=== PATIENT | male | born 1960 | race Caucasian/White ===

== ENCOUNTER → 2018-04-10 11:27 | Outpatient (CLI) | payer OTHER, SELFPAY ==
--- NOTE | 2018-04-10 | DI.MRI.S_ITS ---
PROCEDURE: MR SHOULDER RT WO CON INDICATIONS: CHRONIC RIGHT SHOULDER PAIN TECHNIQUE: Noncontrast oblique coronal T2 fast spin echo with fat saturation, oblique sagittal T1 spin echo and T2 fast spin echo with fat saturation, axial T1 spin echo and T2 fast spin echo with fat saturation through the shoulder. COMPARISON: None. FINDINGS: Image quality: Excellent. Rotator cuff: Severe thickening and intrasubstance signal change involving the supraspinatus and infraspinatus tendons is present in keeping with marked tendinopathy and interstitial tearing. There are partial-thickness bursal and articular sided tear of the infraspinatus and supraspinatus tendon, however no definite retracted or full thickness defect is seen. Mild tendinopathy involving teres minor. Subscapularis tendon also appears thickened with partial thickness articular sided tear and tendinopathy. No atrophy of the rotator cuff musculature although there is mild fatty infiltration diffusely. Bones and bursae: No bone marrow contusions or fractures. Moderate glenohumeral and moderate to severe acromioclavicular joint degeneration. The acromion demonstrates conventional anatomy, without an os acromiale. Trace subacromial/subdeltoid bursal fluid. Capsule and soft tissues: Prominent hypertrophic appearance of the anterior and posterior labrum, with intrasubstance signal change for example image 18 series 12. Ill-defined tear involving the superior labrum although this is technically age-indeterminate. The inferior labrum is not well seen and blunted appearance. The long head of the biceps tendon demonstrates normal location and morphology. The rotator interval appears normal, without fibrosis. The coracohumeral ligament is normal in thickness. IMPRESSION: Severe supraspinatus and infraspinatus tendinopathy and thickening and interstitial tearing. Partial thickness bursal and articular sided tear without full thickness defect. Mild teres minor tendinopathy. Subscapularis tendinopathy and partial thickness articular sided tear. Moderate shoulder joint degeneration. Circumferential labral tear, with pronounced hypertrophic appearance and scarring. This suggests chronic age, and superimposed degeneration. Please correlate with exam findings. Dictated by: Brooks Ellis M.D. on 04/10/2018 at 15:29 Approved by: Brooks Ellis M.D. on 04/10/2018 at 15:40
== END ==
PROVIDERS: Family Provider Family Medicine; PCP Family Medicine; Visit Provider Nurse Practitioner Family
DX: M25.511 Pain in right shoulder (principal); M75.101 Unspecified rotator cuff tear or rupture of right shoulder, not specified as traumatic; M19.011 Primary osteoarthritis, right shoulder; S43.491A Other sprain of right shoulder joint, initial encounter; G89.29 Other chronic pain
CPT/HCPCS: 73221

== ENCOUNTER → 2022-03-30 14:08 | Outpatient (CLI) | payer OTHER, SELFPAY ==
--- NOTE | 2022-03-30 | DI.US.S_ITS ---
PROCEDURE: US ABDOMEN LIMITED INDICATIONS: Right lower quadrant pain TECHNIQUE: Real-time focused scanning was performed of the abdomen, with image documentation. COMPARISON: None. FINDINGS: Limited ultrasound examination of right groin shows no soft tissue mass or fluid collection. No inguinal fascial defect or hernia. No inguinal lymphadenopathy. IMPRESSION: No abnormality is seen in right groin to account for patient's symptoms. Dictated by: Felix Martinez M.D. on 03/30/2022 at 19:22 Approved by: Felix Martinez M.D. on 03/30/2022 at 19:22
== END ==
PROVIDERS: Family Provider Family Medicine; PCP Nurse Practitioner Family; Referring Provider Nurse Practitioner Family; Visit Provider Nurse Practitioner Family
DX: R10.31 Right lower quadrant pain (principal)
CPT/HCPCS: 76705

== ENCOUNTER → 2024-10-28 13:41 | Outpatient (CLI) | payer OTHER, SELFPAY ==
--- NOTE | 2024-10-28 13:43 | DI.MRI.S_ITS ---
PROCEDURE: MR LUMBAR SPINE WO CON INDICATIONS: LUMBAR TECHNIQUE: Noncontrast sagittal T1 spin echo and T2 fast echo, sagittal STIR, and T2 fast spin echo through the lumbar spine. In cases with scoliosis, additional coronal T2 fast spin echo may be performed. COMPARISON: None. FINDINGS: Image quality: Excellent. Alignment and Curvature: 0.7 cm of anterolisthesis of L5 on S1 due to bilateral pars defects. Bone alignment is otherwise normal. Bone Marrow: Vertebral body hemangioma in T12. Mixed type Modic changes in the endplates at the L1-2 level with moderate posterior spurring. Type 2 Modic changes in the posterior endplates at L2-3. Type 1 Modic changes posteriorly at L3-4. No vertebral body fractures. Prominent Schmorl's node centrally in L3. Spinal Cord: Conus medullaris terminates at the L1 level. Visualized cord demonstrates normal signal and size. Paraspinous Soft Tissues: No paravertebral masses. T12-L1: Normal appearance. L1-L2: Moderate circumferential disc osteophyte flattens the anterior thecal sac. Mild bilateral facet and ligamentum flavum hypertrophy. Overall moderately severe central canal stenosis with near effacement of CSF space. Above this level, the nerve roots demonstrate redundancy. No significant foraminal stenosis. L2-L3: Moderate circumferential disc bulge. Mild facet arthropathy. Moderate central canal narrowing. No foraminal stenosis. L3-L4: Severe facet arthropathy and ligamentum flavum hypertrophy. Moderate to large circumferential disc bulge. Severe central canal stenosis with effacement of CSF space and epidural fat. Mild bilateral foraminal narrowing. L4-L5: Severe facet arthropathy, moderate circumferential disc bulge and severe central canal stenosis with an AP diameter of 5 mm measured only in the sagittal view. Severe left and moderate right foraminal stenosis also due to facet arthropathy. L5-S1: Broad-based posterior disc uncovering. Moderate disc osteophyte and moderate bilateral foraminal stenosis. IMPRESSION: Multiple levels of moderate to severe central canal stenosis, most significant at the L4-5 level. Bilateral foraminal stenosis also present at L4-5 and L5-S1. L5 pars defects resulting in anterolisthesis. Dictated by: Delphine Garcia M.D. on 10/29/2024 at 15:46 Approved by: Delphine Garcia M.D. on 10/29/2024 at 15:58
== END ==
PROVIDERS: Family Provider Family Medicine; PCP Nurse Practitioner Family; Referring Provider Physician Assistant; Visit Provider Physician Assistant
DX: M47.26 Other spondylosis with radiculopathy, lumbar region (principal); R20.0 Anesthesia of skin; M48.061 Spinal stenosis, lumbar region without neurogenic claudication; M48.07 Spinal stenosis, lumbosacral region; M43.16 Spondylolisthesis, lumbar region; M25.78 Osteophyte, vertebrae; M47.816 Spondylosis without myelopathy or radiculopathy, lumbar region; M46.06 Spinal enthesopathy, lumbar region
CPT/HCPCS: 72148